=== PATIENT | male | born 1955 | race Caucasian/White ===

== ENCOUNTER 2019-02-18 08:13 | Inpatient (IN) | payer OTHER ==
[~2019-02-18] VITALS: Ht 180.3 cm; Wt 99.3 kg
--- NOTE | 2019-02-18 08:40 | NUR ---
NETWORK DIAGNOSTIC SUPPORT SPECIALIST ADMITTING NOTES RECEIVED PATIENT BROUGHT BY AMBULANCE CREW FROM [facility] DIRECT ADMIT. PATIENT IS A/OX3-4, ABLE TO MAKE NEEDS KNOWN. AMBULATORY. NOT IN ANY FORM OF DISTRESS. NO SOB. DENIED PAIN OR DISCOMFORT AT THIS TIME. ON 2LPM O2 SATTING 94%. ON TELE SR 85. IV ACCESS ON R HAND GAUGE 18 INTACT AND PATENT. BODY CHECK DONE, NO SKIN ISSUES NOTED. PATIENT RIGHT 2ND TOE AMPUTEE NOTED. ALL BELONGINGS AT BEDSIDE, CHECK AND LISTED ON FORM BY KATI KEMP. NO WALLET PER PATIENT. ORIENTED PATIENT TO THE ROOM. TAUGHT HOW TO USE A CALL LIGHT. AND INSTRUCTED TO CALL THE NURSE FOR ASSISTANCE. NO NEEDS AT THIS TIME PER PATIENT. KEPT PATIENT SAFE AND COMFORTABLE. BED IN LOW/LOCLE DPSOITION, SIDERAIL;S UPX2, CALL LIGHT IN REACH. BED ALARM ON. WILL CONTINUE TO MONIOTR ACCORDINGLY.
[2019-02-18 08:50] VITALS: BP 130/90
--- NOTE | 2019-02-18 08:55 | NUR ---
RN NOTES DR GILLESPIE AT BEDSIDE TALKING TO PATIENT
[2019-02-18] MEDS ORDERED: MAG HYDROX/AL HYDROX/SIMETH 30 ML UDC PO PRN (10:30)
[2019-02-18] MEDS ORDERED: Z GUARD REMEDY 2 OZ OINT TP PRN (10:30)
[2019-02-18] MEDS ORDERED: IV NS 0.9% 1,000 ML IV PRN (10:30)
[2019-02-18] MEDS ORDERED: ONDANSETRON HCL/PF 4 MG/2 ML VIAL IVP PRN (10:30)
[2019-02-18] MEDS ORDERED: MAGNESIUM HYDROXIDE 30 ML UDC PO PRN (10:30)
[2019-02-18] MEDS ORDERED: ZOLPIDEM TARTRATE 5 MG TABLET PO PRN (10:30)
[2019-02-18] MEDS ORDERED: ACETAMINOPHEN 325 MG TABLET PO PRN (10:30)
[2019-02-18] MEDS ORDERED: HYDROCODONE/APAP 5/325MG 1 EACH TABLET PO PRN (10:30)
[2019-02-18] MEDS ORDERED: Thiamine 100 MG in IV D5W 50 ML IV SCH (11:00)
[2019-02-18] MEDS ORDERED: Folic acid 1 MG in IV D5W 50 ML IV SCH (11:00)
[2019-02-18] MEDS ORDERED: FEE PK DOSING 1 MIN EA MC ONE (11:17)
--- NOTE | 2019-02-18 12:00 | NUR ---
RN NOTES DR NY AT BEDSIDE TALKING TO PATIENT. PER MD, HE IS NOW TAKING OVER. DR GILLESPIE IS AWARE.
[2019-02-18 12:22] LABS: BASOPHILS % (AUTO) 0.4 % (0.0-2.0); EOSINOPHILS % (AUTO) 0.2 % (0.0-6.0); HEMATOCRIT 48 % (39-51); HEMOGLOBIN 15.7 g/dL (13.5-17.5); LYMPHOCYTES # (AUTO) 1.7 /CMM (0.8-4.8); LYMPHOCYTES % (AUTO) 23.2 % (20.0-44.0); MEAN CORPUSCULAR HGB CONC 33 g/dl (31.0-36.0); MEAN CORPUSCULAR VOLUME 91 fL (80-96); MONOCYTES # (AUTO) 0.6 /CMM (0.1-1.30); MONOCYTES % (AUTO) 7.4 % (2.0-12.0); NEUTROPHILS # (AUTO) 5.1 /CMM (1.8-8.9); NEUTROPHILS % (AUTO) 68.8 % (43.0-81.0); PLATELET COUNT (AUTO) 234 /CMM (150-450); RED BLOOD CELL COUNT(AUTO) 5.29 MIL/uL (4.5-6.0); WHITE BLOOD COUNT (AUTO) 7.5 K/uL (4.3-11.0)
[2019-02-18 12:40] LABS: ALBUMIN 3.6 g/dL (3.4-5.0); BILIRUBIN,TOTAL 0.2 mg/dL (0.2-1.0); CALCIUM, SERUM 8.1 mg/dL (8.5-10.1); CREATININE 0.9 mg/dL (0.6-1.3); POTASSIUM 4.4 mmol/L (3.5-5.1); TOTAL PROTEIN, SERUM 7.4 g/dL (6.4-8.2)
[2019-02-18] MEDS: PIPERACILLIN /TAZOBACTAM 3.375 G in IV D5W 50 ML IV SCH ×3 (12:40→23:57)
[2019-02-18] MEDS ORDERED: ALBUTEROL HALF STRENGTH 1.25 MG/3 ML VIAL.NEB NEB PRN (13:00)
[2019-02-18] MEDS ORDERED: VANCOMYCIN 1 GM in IV D5W 250 ML IV SCH (13:00)
[2019-02-18] MEDS: FOLIC ACID 1 MG TABLET PO SCH (13:33)
[2019-02-18] MEDS: LORAZEPAM INJ 2 MG/ML VIAL IV SCH ×2 (14:22→19:56)
--- NOTE | 2019-02-18 14:39 | NUR ---
RN NOTES PATIENT REFUSED TO PUT TELEMONITOR ON. PER PATIENT, "I DONT NEED IT". DIRECTOR OF PROFESSIONAL SERVICES MADE AWARE. WILL INFORM MD.
--- NOTE | 2019-02-18 15:19 | NUR ---
RN NOTES REFUSED MRSA SWAB. EXPLAINED PROTOCOL, RISK, AND BENEFIT BUT STILL REFUSED. PATIENT SAID, "NO! I DONT NEED ANY OF THAT!" PATIENT STARTED TO GET AGITATED BUT WAS ABLE TO CALM HIM DOWN.
[2019-02-18 16:00] VITALS: BP 132/95
--- NOTE | 2019-02-18 19:30 | NUR ---
MS RN OPENING NOTES Received patient, asleep on bed, easily awaken. On RA, no SOB/respiratory distress noted. No complaints of discomfort at this time. Kept bed clean, dry and comfortable. Call light within easy reach. On fall precautions. Will continue to monitor accordingly.
--- NOTE | 2019-02-18 19:30 | NUR ---
RN CLOSING NOTES PATIENT IN STABLE CONDITION. ALL NEEDS ATTENDED AND PROVIDED. ALL DUE MEDS GIVEN ORDERED. KEPT PATIENT SAFE AND COMFORTABLE. BED IN LOW/LOCKED POSITION, SIDERAILS UPX2, CALL LIGHT IN REACH. ENDORSED TO FEROZ ANTOINE FOR JULIANN
[2019-02-18 20:00] VITALS: BP 136/82
[2019-02-18] MEDS: LEVETIRACETAM (250 MG) 250 MG TABLET PO SCH (20:47)
[2019-02-18] MEDS: MAGNESIUM OXIDE 400 MG TABLET PO SCH (21:26)
[2019-02-18] MEDS: ATORVASTATIN 10 MG TABLET PO SCH (21:26)
[2019-02-19] MEDS: LORAZEPAM INJ 2 MG/ML VIAL IV SCH ×3 (01:09→13:30)
--- NOTE | 2019-02-19 05:00 | NUR ---
MS RN NOTES Patient noted walking in the room. R wrist IV line pulled out, no bleeding noted, IV cannula intact and complete. Escorted patient back to bed. Changed patient's linens. Kept pt on bed clean, dry and comfortable. Call light within easy reach. Bed alarm on. Will continue to monitor accordingly.
[2019-02-19] MEDS: PIPERACILLIN /TAZOBACTAM 3.375 G in IV D5W 50 ML IV SCH (05:24)
[2019-02-19 06:28] LABS: BASOPHILS % (AUTO) 0.4 % (0.0-2.0); EOSINOPHILS % (AUTO) 0.4 % (0.0-6.0); HEMATOCRIT 44 % (39-51); HEMOGLOBIN 14.3 g/dL (13.5-17.5); LYMPHOCYTES # (AUTO) 1.2 /CMM (0.8-4.8); LYMPHOCYTES % (AUTO) 15.7 % (20.0-44.0); MEAN CORPUSCULAR HGB CONC 33 g/dl (31.0-36.0); MEAN CORPUSCULAR VOLUME 91 fL (80-96); MONOCYTES # (AUTO) 0.7 /CMM (0.1-1.30); MONOCYTES % (AUTO) 9.5 % (2.0-12.0); NEUTROPHILS # (AUTO) 5.6 /CMM (1.8-8.9); PLATELET COUNT (AUTO) 200 /CMM (150-450); WHITE BLOOD COUNT (AUTO) 7.6 K/uL (4.3-11.0)
--- NOTE | 2019-02-19 06:31 | NUR ---
MS RN CLOSING NOTES Patient asleep, easily awaken. On RA, no SOB/respiratory distress noted. With patent peripheral IV line R hand with IVF infusing well as ordered. All nursing needs attended, all due meds given as ordered, no ASE noted. Patient refused wound treatment at this time. Kept patient on bed clean, dry and comfortable. Endorsed to the next shift.
[2019-02-19 07:11] LABS: ALBUMIN 3.5 g/dL (3.4-5.0); BILIRUBIN,TOTAL 0.6 mg/dL (0.2-1.0); CALCIUM, SERUM 8.3 mg/dL (8.5-10.1); CREATININE 0.9 mg/dL (0.6-1.3); MAGNESIUM 1.7 mg/dL (1.8-2.4); PHOSPHORUS 2.8 mg/dL (2.5-4.9)
[2019-02-19 07:33] LABS: THYROID STIMULATING HORMONE 5.935 uIU/mL (0.358-3.74)
[2019-02-19 08:00] VITALS: BP 153/83
--- NOTE | 2019-02-19 08:00 | NUR ---
MS RN RECEIVED ON BED, AWAKE,ALERT,ORIENTED X4,NOT IN ANY FORM OF DISTRESS, RESPIRATIONS EVEN AND UNLABORED,NO SOB NOTED, LUNGS ARE CLEAR.ABDOMEN SOFT,POSITIVE BOWEL SOUNDS,DENIES PAIN AT THIS TIME, WILL MONITOR PATIENT'S CONDITION.
--- NOTE | 2019-02-19 09:30 | NUR ---
ms garay breakfast served, due meds given,tolerated well.
[2019-02-19] MEDS: NICOTINE PATCH (21MG) 21 MG PATCH.TD24 TD SCH (10:13)
[2019-02-19] MEDS: LEVETIRACETAM (250 MG) 250 MG TABLET PO SCH ×2 (10:14→20:42)
[2019-02-19] MEDS: FOLIC ACID 1 MG TABLET PO SCH (10:14)
[2019-02-19] MEDS: MULTIVITAMINS,THERAGRAN 1 UDTAB TABLET PO SCH (10:14)
[2019-02-19] MEDS: THIAMINE HCL 100 MG TABLET PO SCH (10:14)
[2019-02-19] MEDS ORDERED: PIPERACILLIN /TAZOBACTAM 3.375 G in IV D5W 100 ML IV SCH (12:00)
[2019-02-19 16:00] VITALS: BP 152/109
--- NOTE | 2019-02-19 16:00 | NUR ---
ms rn was seen by bhavani dorantes/ orders made and carried out.
[2019-02-19] MEDS: predniSONE 20 MG TABLET PO SCH (17:47)
--- NOTE | 2019-02-19 18:55 | NUR ---
ms rn on bed, no distress noted, all needs attended.
--- NOTE | 2019-02-19 19:30 | NUR ---
MS RN NOTE RECEIVED PATIENT IN BED. A/O X 2. TOLERATING ROOM AIR. RESPIRATIONS ARE EVEN AND UNLABORED. NO SIGNS OF SOB NOTED. DENIES PAIN AT THIS TIME. NO IV ACCESS AT THIS TIME. BED IS LOW AND LOCKED. CALL LIGHT WITHIN REACH. WILL CONTINUE TO MONITOR.
[2019-02-19 20:00] VITALS: BP 143/95
[2019-02-19] MEDS ORDERED: LORAZEPAM INJ 2 MG/ML VIAL IV PRN (20:00)
[2019-02-19] MEDS: AZITHROMYCIN 500 MG in IV D5W 250 ML IV SCH (20:15)
[2019-02-19] MEDS: ATORVASTATIN 10 MG TABLET PO SCH (21:03)
[2019-02-19] MEDS: MAGNESIUM OXIDE 400 MG TABLET PO SCH (21:03)
--- NOTE | 2019-02-20 06:52 | NUR ---
MS RN CLOSING NOTE PATIENT IS RESTING IN BED. A/O X2. TOLERATING ROOM AIR. RESPIRATIONS ARE EVEN AND UNLABORED. NO SIGS OF SOB. DENIES PAIN AT THIS TIME. IV ACCESS MAINTAINED IN THE RIGHT HAND GAUGE 20 PATENT AND SALINE LOCKED. IN NO APPARENT DISTRESS AT THIS TIME. BED IS LOW AND LOCKED. HOB ELEVATED 30 DEGREES SIDE RAILS UP X2. CALL LIGHT WITHIN REACH. WILL ENDORSE TO NEXT SHIFT FOR JULIANN.
[2019-02-20 08:12] VITALS: BP 140/103
[2019-02-20 08:52] LABS: CREATININE 0.7 mg/dL (0.6-1.3); POTASSIUM 5.3 mmol/L (3.5-5.1)
[2019-02-20] MEDS ORDERED: AMLODIPINE BESYLATE 5 MG TABLET PO SCH (09:00)
[2019-02-20] MEDS: MULTIVITAMINS,THERAGRAN 1 UDTAB TABLET PO SCH (09:15)
[2019-02-20] MEDS: LEVETIRACETAM (250 MG) 250 MG TABLET PO SCH ×2 (09:15→20:33)
[2019-02-20] MEDS: predniSONE 20 MG TABLET PO SCH (09:15)
[2019-02-20] MEDS: THIAMINE HCL 100 MG TABLET PO SCH (09:15)
[2019-02-20] MEDS: NICOTINE PATCH (21MG) 21 MG PATCH.TD24 TD SCH (09:15)
[2019-02-20] MEDS: FOLIC ACID 1 MG TABLET PO SCH (09:15)
[2019-02-20] MEDS ORDERED: LORAZEPAM INJ 2 MG/ML VIAL IV PRN (13:30)
[2019-02-20 16:00] VITALS: BP 152/107
--- NOTE | 2019-02-20 17:41 | NUR ---
M/S RN NOTES MD NOTIFIED, DR. NY AND DR. CARRILLO OF PATIENT'S POTASSIUM LEVEL OF 5.3, AWAITING FOR ORDERS.
--- NOTE | 2019-02-20 18:17 | NUR ---
M/S RN NOTES PATIENT AWAKE, LYING IN BED, NO RESPIRATORY DISTRESS, NO C/O PAIN AT THIS TIME. PATIENT'S NEEDS ATTENDED. BED ON LOWEST LOCKED POSITION, CALL LIGHT WITHIN REACH. WILL ENDORSE TO ONCOMING NURSE.
--- NOTE | 2019-02-20 19:30 | NUR ---
MS FEROZ VELASQUEZ NOTE RECEIVED PATIENT IN BED. A/O X 2. TOLERATING ROOM AIR. RESPIRATIONS ARE EVEN AND UNLABORED. NO SIGNS OF SOB NOTED. DENIES PAIN AT THIS TIME. IV ACCESS IN LEFT HAND GAUGE 18 PATENT AND SALINE LOCKED. BED IS LOW AND LOCKED. CALL LIGHT WITHIN REACH. WILL CONTINUE TO MONITOR.
[2019-02-20 20:00] VITALS: BP 138/100
[2019-02-20] MEDS: AZITHROMYCIN 500 MG in IV D5W 250 ML IV SCH (20:10)
[2019-02-20] MEDS: MAGNESIUM OXIDE 400 MG TABLET PO SCH (21:04)
[2019-02-20] MEDS: ATORVASTATIN 10 MG TABLET PO SCH (21:04)
--- NOTE | 2019-02-20 23:45 | NUR ---
MS RN NOTE PATIENT REMOVED IV FROM RIGHT HAND. STATED IT WAS BOTHERING HIM AND THAT HE SHOULD'VE CALLED THE NURSE TO HAVE IT DISCONNECTED FROM THE INFUSING IVF. PATIENT REFUSED HAVING ONE INSERTED. I INFORMED THE PATIENT OF RISKS AND BENEFITS AND PATIENT AGREED TO HAVE ONE INSERTED IN THE MORNING TO CONTINUE IV ANTIBIOTICS. PATIENT ACKNOWLEDGES AND UNDERSTANDS.
--- NOTE | 2019-02-21 05:48 | NUR ---
MS RN NOTE TALK TO THE PATIENT ABOUT PLACING AN IV THIS MORNING. HE REFUSED.
--- NOTE | 2019-02-21 06:31 | NUR ---
MS RN CLOSING NOTE PATIENT IS RESTING IN BED. A/O X2. TOLERATING ROOM AIR. RESPIRATIONS ARE EVEN AND UNLABORED. NO S/S SOB DURING SHIFT. DENIES PAIN AT THIS TIME. NO IV ACCESS. NO APPARENT DISTRESS AT THIS TIME. ALL NURSING NEEDS MET. BED IS LOW AND LOCKED, SIDE RAILED UP X2. CALL LIGHT WITHIN REACH. WILL ENDORSE TO NEXT SHIFT FOR JULIANN.
[2019-02-21 07:54] LABS: CALCIUM, SERUM 8.9 mg/dL (8.5-10.1); CREATININE 0.8 mg/dL (0.6-1.3); POTASSIUM 3.6 mmol/L (3.5-5.1)
[2019-02-21 08:00] VITALS: BP 133/90
--- NOTE | 2019-02-21 08:02 | NUR ---
M/S RN NOTES PATIENT RESTING, LYING IN BED. NO RESPIRATORY DISTRESS, NO C/O PAIN AT THIS TIME. PATIENT'S NEEDS ATTENDED. BED ON LOWEST LOCKED POSITION, CALL LIGHT WITHIN REACH. WILL CONTINUE TO MONITOR.
[2019-02-21] MEDS: MULTIVITAMINS,THERAGRAN 1 UDTAB TABLET PO SCH (08:22)
[2019-02-21] MEDS: NICOTINE PATCH (21MG) 21 MG PATCH.TD24 TD SCH (08:22)
[2019-02-21] MEDS: FOLIC ACID 1 MG TABLET PO SCH (08:22)
[2019-02-21] MEDS: THIAMINE HCL 100 MG TABLET PO SCH (08:22)
[2019-02-21] MEDS: LEVETIRACETAM (250 MG) 250 MG TABLET PO SCH ×2 (08:22→20:40)
[2019-02-21] MEDS: predniSONE 20 MG TABLET PO SCH (08:22)
[2019-02-21] MEDS: AMLODIPINE BESYLATE 5 MG TABLET PO SCH (08:23)
[2019-02-21 15:45] VITALS: BP 128/87
--- NOTE | 2019-02-21 18:55 | NUR ---
M/S RN NOTES PATIENT RESTING, LYING IN BED, NO RESPIRATORY DISTRESS, NO C/O PAIN AT THIS TIME. PATIENT'S NEEDS ATTENDED. BED ON LOWEST LOCKED POSITION, CALL LIGHT WITHIN REACH. WILL ENDORSE TO ONCOMING NURSE.
--- NOTE | 2019-02-21 19:27 | NUR ---
RN NOTES: RECEIVED AWAKE ON BED, LYING COMFORTABLY NO PAIN OR DISCOMFORT, KEVIN,ORIENTED TO UNIT AND STAFF,EXPLAINED TO HIM WILL INSERT IV CANNULA LATER AND HE AGREED, FALL, SAFETY AND ASPIRATION PRECAUTION OBSERVED,CALL LIGHT WITHIN EASY REACH. Addendum: 02/21/19 at 2118 by SUZAN DEAL RN RN NOTES: -FOR CORRECTION OF LEVEL OF CONSCIOUSNESS: DAISY3
[2019-02-21 20:00] VITALS: BP 123/85
--- NOTE | 2019-02-21 20:03 | NUR ---
RN NOTES: AGREED FOR IV CANNULATION, INSERTED TO G#22, 1 ATTEMPT WITH GOOD BACK FLOW, SECURED WITH TRANSPARENT DRESSING. Addendum: 02/22/19 at 0719 by SUZAN DEAL RN RN NOTES CORRECTION OF IV SITE: IV CANNULA INSERTED ON THE G#22.
[2019-02-21] MEDS: AZITHROMYCIN 250 MG TABLET PO SCH (20:40)
[2019-02-21] MEDS: ATORVASTATIN 10 MG TABLET PO SCH (21:23)
[2019-02-21] MEDS: MAGNESIUM OXIDE 400 MG TABLET PO SCH (21:24)
--- NOTE | 2019-02-22 04:53 | NUR ---
RN NOTES: ASLEEP IN THE NIGHT, NO PAIN OR DISCOMFORT, KEPT COMFORTABLE IN BED.CALL LIGHT WITHIN EASY REACH.
--- NOTE | 2019-02-22 06:35 | NUR ---
RN NOTES: SLEEP WELL IN THE NIGHT, CALLS AND NEEDS ATTENDED,SEIZURE PRECAUTION OBSERVE AT ALL TIMES,KEPT ON CLOSE WATCH, FOR BMP THIS MORNING, ENDORSED FOR CONTINUITY OF CARE.
--- NOTE | 2019-02-22 07:54 | NUR ---
MS RN OPENING NOTE PATIENT IN BED RESTING COMFORTABLY. PATIENT IN NO ACUTE DISTRESS. NO SOB NOTED. PATIENT BREATHING IS EVEN AND UNLABORED. NO FACIAL GRIMACING NOTED. SAFETY PRECAUTIONS IN PLACE. PATIENT BED IS LOCKED AND IN LOWEST POSITION. CALL LIGHT WITHIN REACH. WILL CONTINUE TO MONITOR.
[2019-02-22 07:55] LABS: CALCIUM, SERUM 8.5 mg/dL (8.5-10.1); CREATININE 0.8 mg/dL (0.6-1.3); POTASSIUM 3.7 mmol/L (3.5-5.1)
[2019-02-22 08:00] VITALS: BP 137/84
[2019-02-22] MEDS: NICOTINE PATCH (21MG) 21 MG PATCH.TD24 TD SCH ×2 (09:00→09:10)
[2019-02-22] MEDS: FOLIC ACID 1 MG TABLET PO SCH (09:08)
[2019-02-22] MEDS: MULTIVITAMINS,THERAGRAN 1 UDTAB TABLET PO SCH (09:08)
[2019-02-22] MEDS: predniSONE 20 MG TABLET PO SCH (09:09)
[2019-02-22] MEDS: LEVETIRACETAM (250 MG) 250 MG TABLET PO SCH ×2 (09:09→20:59)
[2019-02-22] MEDS: THIAMINE HCL 100 MG TABLET PO SCH (09:09)
[2019-02-22] MEDS: AMLODIPINE BESYLATE 5 MG TABLET PO SCH (09:10)
[2019-02-22 16:00] VITALS: BP 146/86
--- NOTE | 2019-02-22 18:54 | NUR ---
MS RN CLOSING NOTE PATIENT IN BED RESTING COMFORTABLY, BREATHING ON ROOM AIR SATURATING >95% SPO2. PATIENT IN NO ACUTE DISTRESS. NO SOB NOTED. PATIENT BREATHING IS EVEN AND UNLABORED. PATIENT ABLE TO VERBALIZE NEEDS, NEEDS AND CONCERNS ADDRESSED. ALL NURSING NEEDS MET. PATIENT KEPT CLEAN, DRY, AND REPOSITIONED. PATIENT BED IS LOCKED AND IN LOWEST POSITION. CALL LIGHT WITHIN REACH. WILL ENDORSE CARE TO PM SHIFT FOR JULIANN.
--- NOTE | 2019-02-22 19:20 | NUR ---
RN OPEN NOTES RECEIVED PATIENT AWAKE SITTING IN BED. A/OX3. NO SIGNS OF DISTRESS OR DISCOMFORT. BREATHING EVEN AND UNLABORED. IV ACCESS IN LHAND, PATENT AND INTACT, NO SIGNS OF REDNESS OR INFILTRATION. BED IN LOW LOCKED POSITION WITH SIDE RAILS X2. CALL LIGHT WITHIN REACH. WILL CONTINUE TO MONITOR.
[2019-02-22 20:00] VITALS: BP 155/78
[2019-02-22] MEDS: AZITHROMYCIN 250 MG TABLET PO SCH (20:59)
[2019-02-22] MEDS: ATORVASTATIN 10 MG TABLET PO SCH (21:01)
[2019-02-22] MEDS: MAGNESIUM OXIDE 400 MG TABLET PO SCH (21:02)
--- NOTE | 2019-02-23 07:00 | NUR ---
RN CLOSING NOTES PATIENT RESTING IN BED, EASILY AROUSABLE. A/OX3. NO SIGNS OF DISTRESS OR DISCOMFORT. BREATHING EVEN AND UNLABORED. IV ACCESS IN LHAND, PATENT AND INTACT, NO SIGNS OF REDNESS OR INFILTRATION. ALL NEEDS. MET NO SIGNIFICANT CHANGES THROUGH THE NIGHT. BED IN LOW LOCKED POSITION WITH SIDE RAILS X2. CALL LIGHT WITHIN REACH. WILL ENDORSE TO AM SHIFT FOR JULIANN.
--- NOTE | 2019-02-23 07:40 | NUR ---
MS RN OPENING NOTE RECEIVED PATIENT IN BED RESTING COMFORTABLY. PATIENT IN NO ACUTE DISTRESS. NO SOB NOTED. PATIENT STATES NO PAIN AT THIS TIME. NO FACIAL GRIMACING NOTED. PATIENT BREATHING IS EVEN AND UNLABORED. PATIENT BED IS LOCKED AND IN LOWEST POSITION. CALL LIGHT WITHIN REACH. WILL CONTINUE TO MONITOR.
[2019-02-23 08:00] VITALS: BP 130/84
[2019-02-23 08:18] LABS: CREATININE 0.9 mg/dL (0.6-1.3); POTASSIUM 3.7 mmol/L (3.5-5.1)
[2019-02-23] MEDS: predniSONE 20 MG TABLET PO SCH (08:47)
[2019-02-23] MEDS: LEVETIRACETAM (250 MG) 250 MG TABLET PO SCH ×2 (08:48→21:02)
[2019-02-23] MEDS: THIAMINE HCL 100 MG TABLET PO SCH (08:48)
[2019-02-23] MEDS: AMLODIPINE BESYLATE 5 MG TABLET PO SCH (08:48)
[2019-02-23] MEDS: MULTIVITAMINS,THERAGRAN 1 UDTAB TABLET PO SCH (08:48)
[2019-02-23] MEDS: FOLIC ACID 1 MG TABLET PO SCH (08:49)
[2019-02-23] MEDS: NICOTINE PATCH (21MG) 21 MG PATCH.TD24 TD SCH (08:57)
--- NOTE | 2019-02-23 12:50 | NUR ---
MS RN NOTE GAVE REPORT TO [facility] AUTO SERVICE DISPATCHER FOR TRANSFER OF CARE. PATIENT SITTING IN CHAIR, WATCHING TV. PATIENT IN NO ACUTE DISTRESS. NO SOB NOTED. PATIENT BREATHING IS EVEN AND UNLABORED. ALL NURSING NEEDS MET DURING MY CARE FOR THE PATIENT. PATIENT KEPT CLEAN AND DRY THROUGHOUT. PATIENT IN NO PAIN AT THIS TIME. SAFETY PRECAUTIONS CONTINUED IN PLACE. ENDORSED CARE FOR CONTINUITY OF CARE TO [facility] AUTO SERVICE DISPATCHER.
--- NOTE | 2019-02-23 12:55 | NUR ---
care taken over, patient alert, oriented, and appropriate. sitting in chair, watching tv. when asked the name of the boarding care, where he has been residing " for a while", did not know. " it is in [place], that is all i know". for now, no complaint.
[2019-02-23 16:00] VITALS: BP 142/84
[2019-02-23 17:57] VITALS: BP 142/84
--- NOTE | 2019-02-23 18:38 | NUR ---
quiet, calm, appetite excellent all meals. No tremors noted. No complaint.
--- NOTE | 2019-02-23 19:25 | NUR ---
RN NOTES RECEIVED PATIENT AWAKE ALERT, RESPONSIVE TO BOTH TACTILE AND VERBAL STIMULI, SAFETY MEASURED IN PLACE, DENIES ANY PAIN OR DISCOMFORT, CALL LIGHT WITHIN EASY REACH, BED IN LOW LOCKED POSITION, ALL NEEDS ATTENDED, WILL CONTINUE TO MONITOR ACCORDINGLY.
[2019-02-23 20:00] VITALS: BP 147/87
[2019-02-23] MEDS: AZITHROMYCIN 250 MG TABLET PO SCH (21:02)
[2019-02-23] MEDS: MAGNESIUM OXIDE 400 MG TABLET PO SCH (22:18)
[2019-02-23] MEDS: ATORVASTATIN 10 MG TABLET PO SCH (22:19)
--- NOTE | 2019-02-24 06:37 | NUR ---
RN NOTES ALL NEEDS ATTENDED AND MET, ABLE TO REST AND SLEEP WITH LONG INTERVALS, SAFETY MEASURES IN PLACE, CALL LIGHT WITHIN EASY REACH, DENIES ANY PAIN AND DISCOMFORT, NO SIGNS OF ACUTE RESPIRATORY DISTRESS NOTED, WILL ENDORSE TO AM NURSE FOR CONTINUITY OF CARE.
[2019-02-24 07:00] VITALS: BP 96/66
[2019-02-24 07:21] LABS: CALCIUM, SERUM 8.6 mg/dL (8.5-10.1); CREATININE 0.9 mg/dL (0.6-1.3); POTASSIUM 3.9 mmol/L (3.5-5.1)
--- NOTE | 2019-02-24 07:50 | NUR ---
MS RN NOTES PATIENT RECEIVED RESTING INSIDE ROOM. AWAKE, ALERT AND ORIENTED X 3, VERBALLY RESPONSIVE AND RESPONDS TO VERBAL AND TACTILE STIMULI. BREATHING EVEN AND UNLABORED. NO ACUTE DISTRESS. NO CHANGES IN LOC NOTED. PATIENT CALM AND RELAXED. SAFETY PRECAUTIONS IN PLACE. WILL CONTINUE TO MONITOR. BED LOCKED AND IN LOW POSITION. BILATERAL UPPER SIDE RAILS UP AND LOCKED. CALL LIGHT WITHIN EASY REACH
[2019-02-24] MEDS: NICOTINE PATCH (21MG) 21 MG PATCH.TD24 TD SCH (09:00)
[2019-02-24] MEDS: AMLODIPINE BESYLATE 5 MG TABLET PO SCH (09:00)
[2019-02-24] MEDS: FOLIC ACID 1 MG TABLET PO SCH (09:01)
[2019-02-24] MEDS: THIAMINE HCL 100 MG TABLET PO SCH (09:01)
[2019-02-24] MEDS: LEVETIRACETAM (250 MG) 250 MG TABLET PO SCH ×2 (09:01→21:19)
[2019-02-24] MEDS: MULTIVITAMINS,THERAGRAN 1 UDTAB TABLET PO SCH (09:02)
[2019-02-24 16:00] VITALS: BP 131/79
--- NOTE | 2019-02-24 19:04 | NUR ---
MS RN NOTES PATIENT RESTING INSIDE ROOM. AWAKE, ALERT AND ORIENTED, VERBALLY RESPONSIVE AND RESPONDS TO VERBAL AND TACTILE STIMULI. BREATHING EVEN AND UNLABORED. NO ACUTE DISTRESS NOTED AT THIS TIME. PATIENT CALM AND RELAXED. NO CHANGES IN LOC NOTED. ENDORSED TO INCOMING SHIFT FOR JULIANN. BED LOCKED AND IN LOW POSITION. BILATERAL UPPER SIDE RAILS UP AND LOCKED. CALL LIGHT WITHIN EASY REACH
--- NOTE | 2019-02-24 19:30 | NUR ---
MS RN NOTE: PATIENT RESTING IN BED, NO ACUTE DISTRESS NOTED. BREATHING EVEN AND UNLABORED, NO SOB NOTED. IV TO LEFT HAND IN PLACE. BED LOCKED AND IN LOWEST POSITION, CALL LIGHT IN REACH. WILL CONTINUE TO MONITOR.
[2019-02-24 20:00] VITALS: BP 120/72
[2019-02-24] MEDS: AZITHROMYCIN 250 MG TABLET PO SCH (21:18)
[2019-02-24] MEDS: ATORVASTATIN 10 MG TABLET PO SCH (21:18)
[2019-02-24] MEDS: MAGNESIUM OXIDE 400 MG TABLET PO SCH (21:18)
--- NOTE | 2019-02-25 03:30 | NUR ---
MS RN NOTE: PATIENT RESTING IN BED, NO ACUTE DISTRESS NOTED. BREATHING EVEN AND UNLABORED, NO SOB NOTED. BED LOCKED AND IN LOWEST POSITION, CALL LIGHT IN REACH. WILL CONTINUE TO MONITOR.
--- NOTE | 2019-02-25 06:20 | NUR ---
MS RN NOTE: PATIENT RESTING IN BED, NO ACUTE DISTRESS NOTED. BREATHING EVEN AND UNLABORED, NO SOB NOTED. IV TO LEFT HAND IN PLACE. BED LOCKED AND IN LOWEST POSITION, CALL LIGHT IN REACH. WILL ENDORSE TO DAY NURSE TO CONTINUE WITH PLAN OF CARE.
[2019-02-25 08:00] VITALS: BP 109/77
--- NOTE | 2019-02-25 08:02 | NUR ---
MS RN NOTES PATIENT RECEIVED RESTING INSIDE ROOM. AWAKE, ALERT AND ORIENTED X 3, VERBALLY RESPONSIVE AND RESPONDS TO VERBAL AND TACTILE STIMULI. NO CHANGES IN LOC NOTED. PATIENT CALM AND RELAXED. NO ACUTE DISTRESS. DENIES ANY PAIN OR DISCOMFORT. WILL CONTINUE TO MONITOR. BED LOCKED AND IN LOW POSITION. BILATERAL UPPER SIDE RAILS UP AND LOCKED. CALL LIGHT WITHIN EASY REACH
[2019-02-25] MEDS: NICOTINE PATCH (21MG) 21 MG PATCH.TD24 TD SCH (09:00)
[2019-02-25] MEDS: LEVETIRACETAM (250 MG) 250 MG TABLET PO SCH (09:04)
[2019-02-25] MEDS: MULTIVITAMINS,THERAGRAN 1 UDTAB TABLET PO SCH (09:04)
[2019-02-25] MEDS: FOLIC ACID 1 MG TABLET PO SCH (09:04)
[2019-02-25 09:05] VITALS: BP 109/77
[2019-02-25] MEDS: AMLODIPINE BESYLATE 5 MG TABLET PO SCH (09:05)
[2019-02-25] MEDS: THIAMINE HCL 100 MG TABLET PO SCH (09:05)
--- NOTE | 2019-02-25 10:27 | NUR ---
MS RN NOTES RECEIVED CALL FROM DR NY WITH NEW ORDERS THAT PATIENT IS CLEARED TO BE DISCHARGED BACK TO [facility]. NURSING STAFF FROM [facility] TO FOLLOW-UP WITH DR NY FOR ADMISSION ORDERS. ORDER NOTED AND CARRIED OUT. PATIENT MADE AWARE AND VERBALIZED UNDERSTANDING. PLACED CALL TO [facility] AND SPOKE WITH [employer]OM[employer] CLOTH TENDER AND MADE AWARE OF PATIENT DISCHARGE, ALSO MADE AWARE TO FOLLOW-UP WITH DR NY REGARDING MEDICATIONS AND FURTHER ORDERS AND VERBALIZED UNDERSTANDING, SAID SHE WILL FOLLOW-UP WITH DR NY. WILL CONTINUE TO MONITOR
--- NOTE | 2019-02-25 12:22 | NUR ---
MS RN NOTES PATIENT FOR DISCHARGE TODAY, DISCHARGE INSTRUCTION AND EDUCATION GIVEN AND PATIENT VERBALIZED UNDERSTANDING. IV REMOVED, TIP INTACT, PRESSURE DRESSING IN PLACE ON SITE. NAME BAND REMOVED. ALL BELONGINGS COMPLETE ON DISCHARGE, NO REPORT OF MISSING INVENTORY. NO NEW SKIN BREAKDOWN NOTED ON DISCHARGE. PATIENT LEFT UNIT AT 1215 VIA GURNEY IN STABLE CONDITION. NO ACUTE DISTRESS. AMBULATORY. DENIES ANY PAIN OR DISCOMFORT. LEFT HOSPITAL PREMISES VIA AMBULANCE TRANSPORTATION. MD AWARE OF DISCHARGE
== END 2019-02-25 12:15 | DRG 137 ==
LOC: TELE 08:13 → MED 18:14
PROVIDERS: ADMIT Internal Medicine; ATTEND Internal Medicine
DX: J69.0 Pneumonitis due to inhalation of food and vomit (principal); J44.0 Chronic obstructive pulmonary disease with (acute) lower respiratory infection; Z59.0 Homelessness; J44.1 Chronic obstructive pulmonary disease with (acute) exacerbation; F10.229 Alcohol dependence with intoxication, unspecified; F12.90 Cannabis use, unspecified, uncomplicated; I10 Essential (primary) hypertension; E66.9 Obesity, unspecified; Z68.30 Body mass index [BMI] 30.0-30.9, adult; Z72.0 Tobacco use; G40.909 Epilepsy, unspecified, not intractable, without status epilepticus; Z82.3 Family history of stroke
CPT/HCPCS: 36415; 71046; 80048-TC; 80053-TC; 80061-TC; 80202-TC; 83735-TC; 84100-TC; 84443-TC; 85025-TC; 97116-TC; 97530-TC; G0378; J0456; J2060; J2543; J3370; J3411; J3490; J7030; J7060